=== PATIENT | female | born 1960 | race Hispanic/Latino ===

== ENCOUNTER → 2017-11-12 | Day surgery (SDC) | payer SELFPAY ==
[2017-10-29 11:36] LABS: BASOPHILS % 0.7 % (0.0-1.0); EOSINOPHILS # (AUTO) 0.1 (0.0-0.4); EOSINOPHILS % 1.1 % (0.0-6.0); HEMATOCRIT 38.1 % (34.2-44.1); HEMOGLOBIN 12.6 g/dL (12.0-16.0); LYMPHOCYTES # (AUTO) 2.4 (1.0-3.2); LYMPHOCYTES % 42.9 % (18.0-39.1); MEAN CORPUSCULAR HEMOGLOBIN 29.4 pg (28-32); MEAN CORPUSCULAR HGB CONC 33.1 g/dL (31-35); MEAN CORPUSCULAR VOLUME 88.8 fL (81-99); MONOCYTES # (AUTO) 0.4 (0.2-0.8); MONOCYTES % 6.9 % (4.4-11.3); NEUTROPHILS # (AUTO) 2.7 (2.1-6.9); NEUTROPHILS % 48.2 % (38.7-80.0); PLATELET COUNT 233 x10e3/uL (140-360); RED BLOOD COUNT 4.29 x10e6/uL (3.6-5.1); RED CELL DISTRIBUTION WIDTH 13.1 % (11.7-14.4)
[2017-10-29 11:54] LABS: ALANINE AMINOTRANSFERASE 20 IU/L (0-55); ALBUMIN 4.4 g/dL (3.5-5.0); ALBUMIN/GLOBULIN RATIO 1.2 (0.8-2.0); ALKALINE PHOSPHATASE 70 IU/L (40-150); ANION GAP 14.5 mmol/L (8-16); BLOOD UREA NITROGEN 9 mg/dL (7-26); BUN/CREATININE RATIO 11 (6-25); CALCIUM 10.3 mg/dL (8.4-10.2); CARBON DIOXIDE 26 mmol/L (22-29); CHLORIDE 103 mmol/L (98-107); CREATININE, SERUM 0.82 mg/dL (0.57-1.11); EST GLOMERULAR FILTRATION RATE > 60 ML/MIN (60-); GLUCOSE 107 mg/dL (74-118); SODIUM 138 mmol/L (136-145)
[2017-10-29 11:55] LABS: POTASSIUM 5.5 mmol/L (3.5-5.1)
--- NOTE | 2017-10-29 12:19 | Diagnostic Imaging Report ---
PROCEDURE: X-RAY CHEST, TWO VIEWS COMPARISON: None. INDICATIONS: PRE OPERATIVE CHEST X-RAY FOR ABDOMINAL SURGERY FINDINGS: LUNGS: No consolidations or edema. Mild apical pleural thickening. PLEURA: No effusions or pneumothorax. HEART \T\ MEDIASTINUM: The heart is within normal size-limits. BONES \T\ SOFT TISSUES: Unremarkable. CONCLUSION: No acute thoracic abnormality. Dictated by: Whitney Dowd M.D. on 10/29/2017 at 12:22 Electronically approved by: Whitney Dowd M.D. on 10/29/2017 at 12:22
[~2017-11-12] MED LIST: BIOTIN1 MG; BUPIVACAINE 0.25% 30ML SDV INJ ONE; DEXAMETHASONE SOD PHOS INJ 4 MG/ML VIAL ONE; ESTROGENS CONJUGATED VAGINAL CR 45 GM TUBE PV ONE; FENTANYL CITRATE/PF 100MCG/2 ML INJ ONE; GLYCOPYRROLATE INJ 1MG/ 5 ML SYR ONE; KETOROLAC TROMETHAMINE 30 MG/ML VIAL ONE; LIDOCAINE HCL 2% LOCAL INJ 5 ML SDV VIAL INJ ONE; METOCLOPRAMIDE HCL 10 MG/2ML VIAL ONE; MIDAZOLAM HCL 2 MG/2 ML VIAL ONE; ONDANSETRON HCL INJ 2 MG/ML VIAL ONE; PROPOFOL IV EMULSION 10 MG/ML 20 ML VIAL ONE; SEVOFLURANE INHAL SOLN 250 ML PEN BTL ONE; [UNRECOGNIZED DRUG - OTHER]
--- NOTE | 2017-11-12 13:57 | Operative Report ---
DATE OF PROCEDURE: PREOPERATIVE DIAGNOSES 1. Cystocele. 2. Rectocele. POSTOPERATIVE DIAGNOSES 1. Cystocele. 2. Rectocele. OPERATION PERFORMED: Anterior and posterior repair. COMPLICATIONS: None. ESTIMATED BLOOD LOSS: 50 mL. DETAILS OF PROCEDURE: The patient was taken to the OR. Under general anesthesia, patient was prepped and draped in the normal sterile fashion. Patient was placed in the dorsal lithotomy position. A right-angle retractor was placed inside the vagina and anterior wall of the vagina was held with 2 Allis clamps close to the vaginal vault. The anterior subvaginal tissue was injected with Marcaine with epinephrine 0.25%, 10 mL. Then, a transverse skin incision was made between the 2 Allis clamps close to the vault. The vagina was dissected off the bladder using the Metzenbaum scissors using the push-spread technique. The anterior wall of the vagina was opened in the midline using the same instrument. Two flaps of the vagina was dissected off the underlying tissues using both sharp and blunt dissection. Bladder was dissected off the vagina totally and then pubocervical ligaments on each side of the vagina was approximated using Vicryl 0 sutures. Excess vaginal skin was trimmed off using curved Mac scissors and the vagina was closed with interlocking sutures of Vicryl 2-0. Following this, posterior repair was performed. Two Allis clamps were applied at mucocutaneous junction and another clamp was applied on the posterior vaginal wall in the midline. Another Allis clamp was applied in the midline of the posterior vagina at the peak of the rectocele. The skin between the 2 Allis clamps was excised with curved Mac scissors and the vagina dissected off the perineum and rectum using the Metzenbaum scissors using the push-spread technique and opening the posterior vaginal wall in the midline using the same instrument. Two flaps of the vagina were dissected off the underlying muscles using both sharp and blunt dissection. Following this, the levator ani were approximated using Vicryl 0 sutures and the excess vaginal skin was trimmed off using the curved Mac scissors. Vagina was closed with interlocking sutures of Vicryl 0 and the perineum was closed with subcutaneous Vicryl 2-0. Vaginal pack and Marte catheter were placed inside the bladder. Vaginal pack was to be removed together with Marte catheter an hour after the procedure. Patient tolerated the procedure well. Lap and instrument counts were correct times 2 at the end of the procedure. Job#: [id number]
== END | disposition home or self-care (01) ==
LOC: OR 05:27
PROVIDERS: ATTEND Obstetrics & Gynecology
DX: N81.11 Cystocele, midline (principal); N81.6 Rectocele; R00.1 Bradycardia, unspecified; E78.5 Hyperlipidemia, unspecified; Z01.810 Encounter for preprocedural cardiovascular examination; Z01.812 Encounter for preprocedural laboratory examination; Z01.818 Encounter for other preprocedural examination
CPT/HCPCS: 36415 ×2; 57260; 71046; 80053; 84132; 85025; 93005; J1100; J1885; J2001; J2250; J2405; J2765; J3490